=== PATIENT | male | born 1975 | race Two or more races ===

== ENCOUNTER 2025-07-24 07:00 | Emergency (ER) | payer SELFPAY ==
[2025-07-24 07:08] VITALS: BP 137/79; PULSE 63; RESP 17; TEMP 36.7; O2SAT 97; BMI 28.3
--- NOTE | 2025-07-24 07:14 | EDNOTE_ITS ---
<Statement entered by Marisela Benson MD - 07/24/25 16:26> As co-signing physician, I was present and available for consult prn. I concur with the plan and care as documented by the midlevel provider. ED Ear RME/HPI General Chief complaint: Ear Stated complaint: RIGHT EAR PAIN Time Seen by Provider: 07/24/25 07:05 Arrival date/time: 07/24/25 07:00 50-year-old male with history of diabetes presents to the Emergency Department for complaint of right ear pain patient for symptom onset 8 days ago patient reports no fever nausea vomiting no headache dizziness or weakness Limitations: no limitations Related Data Previous Rx's ?Medication ?Instructions ?Recorded amoxicillin 875 mg-potassium 1 tab PO BID 10 days #20 tabs 07/24/25 clavulanate 125 mg tablet ibuprofen 800 mg tablet 800 mg PO TID PRN pain #30 t abs 07/24/25 ofloxacin 0.3 % ear drops 10 drop otic (ear) QDAY 10 d ays 07/24/25 #10 mL Allergies Allergy/AdvReac Type Severity Reaction Status Date / Time No Known Allergies Allergy Verified 07/24/25 07:04 Review of Systems Review of Systems Systems Reviewed: All systems reviewed, normal except as documented Constitutional Constitutional: Reports system reviewed and no additional complaints, except as documented, Denies fever(s) and Denies headache(s) Eyes Eyes: Reports system reviewed and no additional complaints, except as documented and Denies blurry vision ENT Ears, Nose, Mouth, and Throat: Reports system reviewed and no additional complaints, except as documented, Reports ear discharge, Reports otalgia, Denies headache(s), Denies nasal congestion and Denies nasal discharge Cardiovascular Cardiovascular: Reports system reviewed and no additional complaints, except as documented, Denies chest pain and Denies dyspnea Respiratory Respiratory: Reports system reviewed and no additional complaints, except as documented, Denies chest congestion, Denies cough and Denies dyspnea Gastrointestinal Gastrointestinal: Reports system reviewed and no additional complaints, except as documented and Denies abdominal pain Integumentary/Breasts Skin/Breast: Reports system reviewed and no additional complaints, except as documented and Denies rash Neurologic Neurologic: Reports system reviewed and no additional complaints, except as documented, Reports as per HPI and Denies headache(s) Past Medical History Social History SMOKING STATUS: Current some day smoker ED Exam General Limitations: Present no limitations General appearance: Present alert and in no apparent distress Head Head exam: Present atraumatic Eye Eye exam: Present normal appearance, PERRL and EOMI ENT ENT exam: Present mucous membranes moist Expanded ENT Exam TM/Canal exam: Right TM: erythema, bulging, loss of landmarks, canal discharge and canal tenderness Neck Neck exam: Present normal inspection, full ROM and trachea midline Chest Chest inspection: Present normal inspection and symmetric chest wall rise Respiratory Respiratory exam: Present normal lung sounds bilaterally Cardiovascular Cardiovascular exam: Present regular rate, normal rhythm and normal heart sounds Abdominal Exam Abdominal exam: Present soft and normal bowel sounds Extremities Exam Extremities exam: Present normal inspection and full ROM Back Exam Back exam: Present normal inspection and full ROM Neurological Exam Neurological exam: Present alert, oriented X3 and CN II-XII intact Psychiatric Psychiatric exam: Present normal affect and normal mood Skin Skin exam: Present warm, dry, intact and normal color Course Quality Measures none Orders Category Date Time Status Ibuprofen Tab [Motrin Tab] Med 07/24/25 07:14 Discontinued 800 mg PO X1 ONE Lidocaine 1% 20 ml [Xylocaine 1% 20 ML] Med 07/24/25 07:14 Discontinued 2.1 ml INFL X1 ONE cefTRIAXone [Rocephin] Med 07/24/25 07:14 Discontinued 1,000 mg IM X1 ONE Vital Signs Vital signs: Vital Signs Temperature 98.1 F 07/24/25 07:08 Pulse Rate 63 07/24/25 07:08 Respiratory Rate 17 07/24/25 07:08 Blood Pressure 137/79 H 07/24/25 07:08 Pulse Oximetry (%) 97 07/24/25 07:08 Oxygen Delivery Method Room Air 07/24/25 07:08 O2 saturation 97% room air within normal limits Ear Patient data External records reviewed:: [facility] previous records Clinical information provided by:: patient Social determinants that could affect healthcare access:: none Patient has the following chronic illnesses:: See history How is presenting disease/condition affected by chronic disease/condition?: exacerbated by Evaluation data The following diagnostics were reviewed and interpreted by me:: other (specify) Lab and/or radiology exams considered but not ordered:: Considered not indicated Interpretation Summary: N/A Medications / Prescriptions Medications or Prescriptions considered but not ordered:: Given Medication administrations:: Medication Administration History Discontinued Medications Ceftriaxone Sodium (Ceftriaxone Sod Inj 1,000 Mg Vial) 1,000 mg IM X1 ONE Stop: 07/24/25 07:15 Ibuprofen (Ibuprofen Tab 400 Mg Tablet) 800 mg PO X1 ONE Stop: 07/24/25 07:15 Lidocaine HCl (Lidocaine Hcl 1% 20 Ml Vial) 2.1 ml INFL X1 ONE Stop: 07/24/25 07:15 Given Consultations Consultation(s) initiated? (list below): No Diagnosis Ear Differential Diagnosis: otitis externa and otitis media Most likely diagnosis given after review of the tests above:: Otitis externa right Admission Indicated Admission indicated?: not indicated Admission Request Was there a request for admission?: No Disposition Plan Disposition Plan: Discharge Discharge Attestation Discharge Attestation: The patient and all family members were given an opportunity to ask questions and understood the discharge instructions. Discharge instructions specifically effects, indications for sooner follow up or return to the emergency department, and the expected course of current diagnosis. Patient condition: Stable Medical Decision Making MDM Narrative MDM Narrative: 50-year-old male with history of diabetes presents to the Emergency Department for complaint of right ear pain patient for symptom onset 8 days ago patient reports no fever nausea vomiting no headache dizziness or weakness On exam patient patient does not appear toxic no acute distress On exam patient appears to have right otitis externa which appears to be significant Patient given injection of antibiotics and discharged home with course of antibiotics and pain medication Explained to the patient him to return in 1 week for reevaluation for worsening symptoms return immediately Differential Diagnosis Differential Diagnosis: Otitis media, otitis externa Medical Records Medical records reviewed: Yes I reviewed the patient's medical records. Discharge Plan Plan Patient Disposition: HOME (Self Care) Discharge Disposition comment: Stable Prescriptions/Referrals Prescriptions/Med Rec: New ibuprofen 800 mg tablet 800 mg PO TID PRN (Reason: pain) Qty: 30 0RF ofloxacin 0.3 % drops 10 drop otic (ear) QDAY 10 Days Qty: 10 0RF amoxicillin-pot clavulanate 875-125 mg tablet 1 tab PO BID 10 Days Qty: 20 0RF Problem List Clinical Impression: Otitis externa Patient/Caregiver Discharge Instructions Education Materials: ED External Ear Infection (Adult) Additional Instructions: Please follow up with your primary care doctor in the next 24-48hrs for any worsening symptoms return here immediately Print Language: Uzbek Stand Alone Forms: [employer] Award Info., Patient Portal Info Letter PA/LAWN CARE TECHNICIAN Supervising Physician PA/LAWN CARE TECHNICIAN Supervising Physician: Dr. benson
[2025-07-24] MEDS: cefTRIAXone SOD INJ 1,000 MG VIAL 1000 MG IM (07:29)
[2025-07-24] MEDS: IBUPROFEN TAB 400 MG TABLET 800 MG PO (07:29)
[2025-07-24] MEDS: LIDOCAINE HCL 1% 20 ML VIAL 2.1 ML INFL (07:30)
== END 2025-07-24 07:45 | disposition home or self-care (01) ==
LOC: SERX 08:11
PROVIDERS: Emergency Provider Nurse Practitioner Primary Care
DX: H60.91 Unspecified otitis externa, right ear (principal)
CPT/HCPCS: 96372; 99282; J0696; J3490; A9270

== ENCOUNTER 2025-08-15 13:42 | Emergency (ER) | payer MEDICAID, SELFPAY ==
[2025-08-15 13:52] VITALS: BP 129/81; PULSE 74; RESP 18; TEMP 36.8; O2SAT 95
--- NOTE | 2025-08-15 13:55 | EDNOTE_ITS ---
<Statement entered by Marisela Benson MD - 08/25/25 06:30> As co-signing physician, I was present and available for consult prn. I concur with the plan and care as documented by the midlevel provider. ED Ear RME/HPI General Chief complaint: Ear Stated complaint: RE-CHECK OF R) EAR Time Seen by Provider: 08/15/25 13:46 Arrival date/time: 08/15/25 13:42 50-year-old male returning for right ear pain. Patient was evaluated for otitis externa. Patient states that he is not taking his medications as directed and has noticed the pain is worse. Patient also reports not being able to hear from the right ear. He denies any discharge from the ear fever chills dizziness nausea or vomiting or taking any other medications for it. Limitations: no limitations Related Data Previous Rx's ?Medication ?Instructions ?Recorded ibuprofen 800 mg tablet 800 mg PO TID PRN pain #30 t abs 07/24/25 Allergies Allergy/AdvReac Type Severity Reaction Status Date / Time No Known Allergies Allergy Verified 08/15/25 13:48 Review of Systems Constitutional Constitutional: Denies chills, Denies fever(s) and Denies headache(s) ENT Ears, Nose, Mouth, and Throat: Denies ear discharge, Reports otalgia, Denies headache(s), Reports hearing loss and Denies vertigo Integumentary/Breasts Skin/Breast: Denies rash and Denies sores Neurologic Neurologic: Denies headache(s) and Denies vertigo Past Medical History Social History SMOKING STATUS: Never smoker ED Exam General Limitations: Present no limitations General appearance: Present alert and in no apparent distress Head Head exam: Present atraumatic Eye Eye exam: Present normal appearance, PERRL and EOMI ENT ENT exam: Present normal oropharynx, mucous membranes moist and TM's normal bilaterally (Left TM normal); Absent normal external ear exam (right ear canal with copious amounts of wax unable to visualize TM) Neurological Exam Neurological exam: Present alert, oriented X3 and CN II-XII intact Psychiatric Psychiatric exam: Present normal affect and normal mood Skin Skin exam: Present warm, dry, intact and normal color Course Quality Measures none Orders Category Date Time Status ED Ear Irrigation X1 Care 08/15/25 13:55 Active Vital Signs Vital signs: Vital Signs Temperature 98.2 F 08/15/25 13:52 Pulse Rate 74 08/15/25 13:52 Respiratory Rate 18 08/15/25 13:52 Blood Pressure 129/81 08/15/25 13:52 Pulse Oximetry (%) 95 08/15/25 13:52 Oxygen Delivery Method Room Air 08/15/25 13:52 PROCEDURES: Ear Wax Removal Right Ear: Cerumenolytic Used: 5-10% Sodium Bicarb solution Results: Re-examined: some cerumen remains TM Examination: TM(s) intact, normal appearance Ear Canal Exam: atraumatic Patient Tolerated Procedure: well and no complications Technique: ear canal irrigated Ear Patient data External records reviewed:: None Clinical information provided by:: patient Social determinants that could affect healthcare access:: none Patient has the following chronic illnesses:: none How is presenting disease/condition affected by chronic disease/condition?: no chronic disease Evaluation data The following diagnostics were reviewed and interpreted by me:: other (specify) (none) Lab and/or radiology exams considered but not ordered:: none Interpretation Summary: none Medications / Prescriptions Medications or Prescriptions considered but not ordered:: none Medication administrations:: none Consultations Consultation(s) initiated? (list below): No Diagnosis Most likely diagnosis given after review of the tests above:: Urine impaction Admission Indicated Admission indicated?: not indicated Admission Request Was there a request for admission?: No Disposition Plan Disposition Plan: Discharge Discharge Attestation Discharge Attestation: The patient and all family members were given an opportunity to ask questions and understood the discharge instructions. Discharge instructions specifically effects, indications for sooner follow up or return to the emergency department, and the expected course of current diagnosis. Patient condition: Stable Discharge Plan Plan Patient Disposition: HOME (Self Care) Prescriptions/Referrals Prescriptions/Med Rec: No Action ibuprofen 800 mg tablet 800 mg PO TID PRN (Reason: pain) Qty: 30 0RF Problem List Clinical Impression: Cerumen impaction Patient/Caregiver Discharge Instructions Discharge Activity: activity as tolerated Education Materials: Impacted Earwax Additional Instructions: Follow-up with your primary care provider as needed. Be sure to take all medications as prescribed Print Language: Kosovan Stand Alone Forms: [employer] Award Info., Patient Portal Info Letter
== END 2025-08-15 18:31 | disposition home or self-care (01) ==
LOC: SERX 14:55
PROVIDERS: Emergency Provider Emergency Medicine
DX: H61.21 Impacted cerumen, right ear (principal)
CPT/HCPCS: 69209; 99281